=== PATIENT | female | born 1955 | race Caucasian/White ===

== ENCOUNTER 2025-01-11 07:52 | Emergency (ER) | payer MEDICARE ==
[2025-01-11] MEDS: diphenhydrAMINE 25 MG Cap PO ONE (10:06)
[2025-01-11] MEDS: hydrOXYzine HCl 25 MG Tab PO ONE (10:06)
[2025-01-11] MEDS: methylPREDNISolone Sodium Succinate 40 MG/1 ML SDV IM ONE (14:22)
[2025-01-11] MEDS: hydrOXYzine HCl 50 MG/ML SDV IM ONE (14:23)
== END 2025-01-11 10:47 | disposition home or self-care (01) ==
LOC: LB.ED 07:52
DX: L29.9 Pruritus, unspecified (principal); Z79.899 Other long term (current) drug therapy
CPT/HCPCS: 99282; 99283; A9270-GY

== ENCOUNTER 2025-01-26 10:45 | Emergency (ER) | payer MEDICARE ==
[2025-01-26 11:42] LABS: BASOPHILS ABSOLUTE AUTO 0.02 K/uL (0.02-0.10); BASOPHILS PERCENT AUTO 0.3 % (0.0-0.5); EOSINOPHILS ABSOLUTE AUTO 0.07 K/uL (0.04-0.40); EOSINOPHILS PERCENT AUTO 0.9 % (1.0-5.0); HEMATOCRIT 45.1 % (37.0-47.0); HEMOGLOBIN 15.4 g/dL (11.5-16.5); LYMPHOCYTES ABSOLUTE AUTO 1.85 K/uL (1.50-4.00); LYMPHOCYTES PERCENT AUTO 25.1 % (20.0-40.0); MEAN CORPUSCULAR HEMOGLOBIN 31.1 pg (27.0-32.0); MEAN CORPUSCULAR HGB CONC 34.1 g/dL (31.0-35.0); MEAN CORPUSCULAR VOLUME 91 fL (76-96); MEAN PLATELET VOLUME 9.3 fL (6.0-10.0); MONOCYTES PERCENT AUTO 8.1 % (3.0-10.0); NEUTROPHILS ABSOLUTE AUTO 4.83 K/uL (2.00-7.50); NEUTROPHILS PERCENT AUTO 65.6 % (45.0-70.0); PLATELET COUNT,PLT 273 K/uL (150-500); RED BLOOD CELL COUNT 4.95 M/uL (3.80-5.80); RED CELL DISTRIBUTION WIDTH 12.7 % (11.0-16.0); WHITE BLOOD CELL COUNT,WBC 7.4 K/uL (4.0-11.0)
[2025-01-26 11:57] LABS: AMPHETAMINES SCREEN, URINE NEGATIVE (NEGATIVE); METHAMPHETAMINES SCREEN, URINE NEGATIVE (NEGATIVE)
[2025-01-26 11:58] LABS: BARBITURATE SCREEN,URINE NEGATIVE (NEGATIVE); BENZODIAZEPINES SCREEN,URINE NEGATIVE (NEGATIVE); METHADONE SCREEN, URINE POSITIVE (NEGATIVE); OXYCODONE SCREEN,URINE NEGATIVE (NEGATIVE); THC SCREEN,URINE 50 NG/ML NEGATIVE (NEGATIVE)
[2025-01-26 12:04] LABS: A/G RATIO 1.1 (0.8-2.0); ALBUMIN 3.5 g/dL (3.4-5.0); ANION GAP 13.9 mmol/L (5.0-15.0); BILIRUBIN TOTAL 0.7 mg/dL (0.0-1.0); BUN/CREATININE RATIO 22.7 (6-25); CALCIUM 8.9 mg/dL (8.5-10.1); CARBON DIOXIDE,CO2 23.9 mmol/L (21.0-32.0); CREATININE 0.97 mg/dL (0.55-1.02); EST CRCL DRUG DOSING (CG) 48.6 mL/min; POTASSIUM,K 3.8 mmol/L (3.5-5.1); PROTEIN TOTAL,TP 6.7 g/dL (6.4-8.2); TSH ULTRASENSITIVE 2.52 uIU/mL (0.358-3.740)
[2025-01-26 12:13] VITALS: PULSE 79
[2025-01-26] MEDS: Hydrocortisone Acetate 1% Crm 30 GM Tube TOP PRN (12:36)
[2025-01-26 14:37] VITALS: BP 119/88
== END 2025-01-26 13:43 | disposition home or self-care (01) ==
LOC: LB.ED 10:45
DX: L29.9 Pruritus, unspecified (principal); Z90.710 Acquired absence of both cervix and uterus
CPT/HCPCS: 36415; 71045; 80053; 80307; 84443; 85025; 93005; 99283